=== PATIENT | female | born 1970 | race Caucasian/White ===

== ENCOUNTER → 2018-10-11 14:12 | Outpatient (CLI) | payer BC | END | disposition home or self-care (01) | LOC: D.HCCARDIO 14:12 | PROVIDERS: ATTEND Internal Medicine Cardiovascular Disease | DX: R07.9 Chest pain, unspecified (principal) ==

== ENCOUNTER 2018-10-19 12:02 | Outpatient (CLI) | payer BC ==
[~2018-10-19] VITALS: Ht 160 cm; Wt 56.8 kg
--- NOTE | ~2018-10-19 | HEMODYNAMI ---
PATIENT:FRANK REINOSO MEDICAL RECORD: [id number] : 70 LOCATION:[facility] ADMISSION DATE: 10/19/18 Generatedon:10/19/201814:50 Patient name: FRANK REINOSO Patient #: [id number] SSN: : 1970 Date of study: 10/19/2018 Page: Of Hemodynamic Procedure Report Patient Data Patient Demographics Procedure consent was obtained First Name: FRANK Gender: Female Last Name: ARLETH : 1970 Middle Initial: EDILSON Age: 47 year(s) Patient #: [id number] Race: Unknown Additional ID: [id number] Contact details Address: [address] [place] [address] State: [place] [facility] [place]: [address] Past Medical History Allergies Allergen Reaction Date Comments Reported Other allergy 10/19/2018 sulfa Admission Admission Data Admission Date: 10/19/2018 Admission Time: 12:02 Admit Source: Other Lab Results Lab Result Date: 10/19/2018 Lab Result Time: 12:30 Biochemistry Name Units Result Min Max BUN mg/dl 11 --(-*--)-- 7 18 Creatinine mg/dl 0.6 --(*---)-- 0.6 1.3 CBC Name Units Result Min Max Hematocrit % 38.2 *-(----)-- 42 54 Hemoglobin g/dl 12.9 -*(----)-- 13.5 17.5 Procedure Procedure Types Cath Procedure Diagnostic Procedure LHC C w/Coronaries Procedure Description Procedure Date Procedure Date: 10/19/2018 Procedure Start Time: 14:33 Procedure End Time: 14:47 Procedure Staff Name Function Monster Hutchinson MD Performing Physician Russel Matamoros RT Monitor Daren Chamberlain RN Nurse Annabel Pinto RT Monitor Alvarez Chase RT Scrub Procedure Data Cath Procedure Fluoroscopy Diagnostic fluoroscopy Total fluoroscopy Time: 2.3 time: 2.3 min min Diagnostic fluoroscopy Total fluoroscopy dose: 273 dose: 273 mGy mGy Contrast Material Contrast Material Type Amount (ml) Isovue 300 64 Entry Location Entry Primary Successful Side Size Upsize Upsize Entry Closure Chicas ccessful Closure Location (Fr) 1 (Fr) 2 (Fr) Remarks Device Remarks Radial Right 6 Fr Mechanical artery Short Compression Estimated blood loss: 5 ml Diagnostic catheters Device Type Used For End Catheter Placement DIAGNOSTIC Black Diamond 110cm 5 Procedure Fr catheter ([id number]) Procedure Complications No complications Procedure Medications Medication Administration Route Dosage 0.9% NaCl I.V. 100 ml/hr Oxygen etCO2 Nasal cannula 2 l/min Heparin Flush Bag added to field 2 bags (1000units/500ml NS) Lidocaine 2% added to field 20 Radial Cocktail added to field 1 syringe (Verapomil 2mg/Nitro 400mcg/Heparin 1500units) Versed I.V. 2 mg Fentanyl I.V. 100 mcg Versed I.V. 2 mg Radial Cocktail I.A. 1 syringe (Verapomil 2mg/Nitro 400mcg/Heparin 1500units) Hemodynamics Rest HGB: 12.9 (g/dl) Heart Rate: 71 (bpm) Pressure Samples Time Site Value (mmHg) Purpose Heart Use Rate(bpm) 14:40 LV 107/8,28 Snapshot 122 14:40 LV 98/10,25 Snapshot 127 Gradients Valve Time Site Site Mean SEP/DFP Peak To Heart Use 1 2 (mmHg) (sec/min) Peak Rate (mmHg) (bpm) Aortic 14:40 LV AO 112 Snapshots Pre Cath Intra NCS Post Cath Vital Signs Time Heart Resp SPO2 etCO2 NIBP (mmHg) Rhythm Pain Sedation Rate (ipm) (%) (mmHg) Status Level (bpm) 14:21:11 90 13 100 0 136/81(113) NSR 0 (11) 10(A) , No pain 14:25:27 78 23 98 38.6 115/67(101) NSR 0 (11) 10(A) , No pain 14:29:37 73 11 97 20 125/65(92) NSR 0 (11) 10(A) , No pain 14:33:47 83 21 97 41.5 133/74(94) NSR 0 (11) 10(A) , No pain 14:37:57 88 12 96 40.7 98/59(81) NSR 0 (11) 10(A) , No pain 14:41:59 99 27 96 39.3 109/68(92) NSR 0 (11) 10(A) , No pain 14:46:04 88 17 97 38.5 114/73(84) NSR 0 (11) 10(A) , No pain Medications Time Medication Route Dose Verified Delivered Reason Notes Effectiveness by by 14:24:28 0.9% NaCl I.V. 100 Daren Daren Per ml/hr Cintia Chamberlain physician RN RN 14:24:39 Oxygen etCO2 2 l/min Daren Daren for low 02 Nasal Lorigan Lorpollo sats cannula RN RN 14:25:48 Heparin Flush added 2 bags Daren Daren used for Bag to Lorpollo Chamberlain procedure (1000units/500ml field RN RN NS) 14:25:58 Lidocaine 2% added 20ml Daren Daren for local to vial Lorigan Lorigan anesthetic RN RN 14:26:11 Radial Cocktail added 1 Daren Daren used for (Verapomil to syringe Lorigan Cintia procedure 2mg/Nitro field BUSH RN 400mcg/Hepari 14:31:32 Versed I.V. 2 mg Daren Daren for sedation Cintia Chamberlain RN RN 14:32:00 Fentanyl I.V. 100 mcg Daren Daren for sedation Cintia Chamberlain RN RN 14:34:11 Versed I.V. 2 mg Daren Daren for sedation Cintia Chamberlain RN RN 14:34:20 Radial Cocktail I.A. 1 Daren Monster for (Verapomil syringe Cintia Hutchinson MD vasodilation 2mg/Nitro RN 400mcg/Hepari Procedure Log Time Note 14:01:01 Informed consent obtained and on chart 14:07:08 Admit Source: Other 14:07:23 Diagnostic Cath status Elective 14:07:24 Daren Chamberlain RN sent for patient. Start room use. 14:07:57 Time tracking: Regular hours (M-F 7:00 - 5:00) 14:08:01 Plan of Care:Hemodynamics will remain stable., Cardiac rhythm will remain stable., Comfort level will be maintained., Respiratory function will remain adequate., Patient/ family verbilizes understanding of procedure., Procedure tolerated without complication., Recovers from procedure without complications.. 14:08:07 H&P Date Dictated: 10/19/2018 Within 30 days and on chart.. 14:11:00 Lab Result : Hemoglobin 12.9 g/dl 14:11:00 Lab Result : Hematocrit 38.2 % 14:11:00 Lab Result : BUN 11 mg/dl 14:11:00 Lab Result : Creatinine 0.6 mg/dl 14:11:08 Lab results completed and on chart. 14:12:09 Patient received from Pre/Post Procedure Room to CCL 1 Alert and oriented. Tansferred to table in Supine position. 14:12:11 Correct patient and procedure confirmed by team. 14:12:11 Warm blankets applied, and shirley hugger turned on for patient comfort. 14:12:14 ECG and BP/O2 sat monitors applied to patient. 14:12:15 Pre-procedure instructions explained to patient. 14:12:16 Pre-op teaching completed and patient verbalized understanding. 14:12:17 Family in waiting room. 14:12:18 Patient NPO since Midnight. 14:12:29 Patient allergic to Other allergysulfa 14:16:11 Vital chart was started 14:16:13 Full Disclosure recording started 14:24:28 0.9% NaCl 100 ml/hr I.V. was administered by Daren Chamberlain RN; Per physician; 14:24:39 Oxygen 2 l/min etCO2 Nasal cannula was administered by Daren Chamberlain RN; for low 02 sats; 14:24:41 Is the patient allergic to Iodine/contrast media? No. 14:24:43 Is patient on blood thinner?No 14:24:45 Patient diabetic? No. 14:24:51 Previous problem with sedation/anesthesia? No ? 14:24:53 Sleep apnea? No 14:24:53 Snore? Yes 14:24:54 Deviated septum? No 14:24:55 Opens mouth fully? Yes 14:24:56 Sticks out tongue? Yes 14:24:59 Airway obstruction? No ? 14:25:20 Dentures? No ? 14:25:27 Pre procedure: right dorsailis pedis pulse 2+ Normal; easily identifiable; not easily obliterated 14:25:29 Patient pain scale 0/10 ?. 14:25:30 Modified Kalen's test Ulnar > 7 seconds. 14:25:36 IV patent on arrival in left wrist with 0.9% NaCl at [facility]. 14:25:41 Right Radial & Right Groin area was prepped with chlora-prep and draped in sterile fashion 14:25:42 Sharps counted by scrub and verified by R.N. 14:25:42 Alarms reviewed by R. N. 14:25:45 ACIST Syringe (18510) opened to sterile field. 14:25:45 Use device set Radial Dx or PCI 14:25:46 Bag Decanter (2002S) opened to sterile field. 14:25:46 Medline Cath Pack ([id number]) opened to sterile field. 14:25:47 ACIST Manifold (54023) opened to sterile field. 14:25:47 ACIST Hand Control (29059) opened to sterile field. 14:25:48 MBrace Wrist Support ([id number]) opened to sterile field. 14:25:48 Tegaderm 4 x 4 (1626W) opened to sterile field. 14:25:48 Heparin Flush Bag (1000units/500ml NS) 2 bags added to field was administered by Daren Chamberlain RN; used for procedure; 14:25:49 SHEATH 6FR Slender (22-1060) opened to sterile field. 14:25:50 DIAGNOSTIC WIRE .035 260cm J wire (966933) opened to sterile field. 14:25:51 NEEDLE Cook 21G 4cm Radial (O48460) opened to sterile field. 14:25:55 Baseline sample Acquired. 14:25:58 Lidocaine 2% 20ml vial added to field was administered by Daren Chamberlain RN; for local anesthetic; 14:25:59 Rhythm: sinus rhythm 14:26:11 HCG/Urine : completed and on chart, negative 14:26:11 Radial Cocktail (Verapomil 2mg/Nitro 400mcg/Heparin 1500units) 1 syringe added to field was administered by Daren Chamberlain RN; used for procedure; 14::13 --------ALL STOP TIME OUT------ 14:26:13 Physician arrived 14:26:16 Right Radial & Right Groin site verified by team. 14:26:20 Maximum allowable Isovue 300 dose 300ml. Physician notified. (300ml for normal creatinines. For patients with creatinine of 1.7 or higher multiply weight(kg) x 5 divided by creatinine.) 14:26:23 Fire Safety Assessment: A--An alcohol-based skin anteseptic being used preoperatively., C--Open oxygen or nitrous oxide is being used., D--An ESU, laser, or fiber-optic light is being used. 14:26:25 Physical assessment completed. ASA score P 2 - A patient with mild systemic disease as per Monster Hutchinson MD. 14::31 Sedation plan: IV Moderate Sedation Medication:Versed, Fentanyl 14:30:16 Zero performed for pressure channel P1 14:30:55 Zero performed for pressure channel P1 14::32 Versed 2 mg I.V. was administered by Daren Chamberlain RN; for sedation; 14:32:00 Fentanyl 100 mcg I.V. was administered by Daren Chamberlain RN; for sedation; 14:32:28 Procedure started. 14:33:37 Local anesthetic to right radial artery with Lidocaine 2% by Monster Hutchinson MD.INITIAL ACCESS ONLY 14:33:52 A 6 Fr Short sheath was inserted into the Right Radial artery 14:34:11 Versed 2 mg I.V. was administered by Daren Chamberlain RN; for sedation; 14:34:20 Radial Cocktail (Verapomil 2mg/Nitro 400mcg/Heparin 1500units) 1 syringe I.A. was administered by Monster Hutchinson MD; for vasodilation; 14:35:00 A DIAGNOSTIC Black Diamond 110cm 5 Fr catheter ([id number]) was advanced over the wire and used for Procedure. 14:35:37 LV gram done using DELGADO 14:35:42 Injector settings: Ml/sec: 7, Volume: 15, 14:36:38 Zero performed for pressure channel P1 14:38:01 Zero performed for pressure channel P1 14:38:21 Zero performed for pressure channel P1 14:38:50 Zero performed for pressure channel P1 14:39:00 Zero performed for pressure channel P1 14:39:07 Zero performed for pressure channel P1 14:40:24 LV hemodynamics recorded. 14:40:45 EF : 60 % 14:41:13 LCA angiography performed. 14:42:49 RCA angiography performed. 14:43:18 Catheter removed. 14:44:03 TR BAND Standard ([id number]) opened to sterile field. 14:44:12 Procedure ended.(Physican Out) 14:44:36 Sheath removed intact; hemostasis achieved with Mechanical Compression to the Right Radial artery. 14:44:57 Fluoroscopy time 02.30 minutes. 14:45:01 Fluoroscopy dose: 273 mGy 14:45:01 Flurop Dose total: 273 14:45:04 Contrast amount:Isovue 300 64ml. 14:45:06 Sharps counted by scrub and verified by R.N. 14:45:08 TR band inflated with 14cc of air. 14:45:11 Post-procedure physical assessment completed. ASA score P 2 - A patient with mild systemic disease as per Monster Hutchinson MD. 14:45:14 Post procedure rhythm: sinus rhythm 14:45:18 Estimated blood loss: 5 ml 14:45:20 Patient needs reinforcement of post procedure teaching. 14:45:20 Post procedure instruction explained to patient.Patient verbalizes understanding. 14:46:48 Procedure and supply charges have been captured, reviewed, submitted and are correct. 14:46:51 Procedure Complication : No complications 14:46:55 Vital chart was stopped 14:46:56 See physician's report for complete and final results. 14:46:59 Report given to Pre/Post Procedure Room. 14:47:06 Patient transfered to Pre/Post Procedure Room with Bed. 14:47:08 Full Disclosure recording stopped 14:47:08 Procedure ended. 14:47:13 End room use (Document Last) Device Usage Item Name Manufacture Quantity Catalog Hospital Part Current Minimal Lot# / Number Charge Number Stock Stock Serial# Code ACIST Acist 1 [id number] 038436 688197 20 Syringe Medical (72927) Systems Inc Medline Medline 1 [id number] 037581 48898 382442 5 Cath Pack ([id number]) Bag Microtek 1 644099 93412 776584 5 Decanter Medical Inc. () ACIST Hand Acist 1 89983 138024 604270 174318 5 Control Medical (34388) Systems Inc ACIST Acist 1 44211 938284 381175 959249 5 Manifold Medical (88823) Systems Inc Tegaderm 4 3M 1 1626W 927437 104968 290910 5 x 4 (1626W) MBrace Advanced 1 140-0250-00 413927 49540 182688 5 Wrist Vascular Support Dynamics ([id number]) SHEATH 6FR Terumo 1 [id number] 321774 631229 157156 5 Slender (48-6380) DIAGNOSTIC [place] 1 418383 781329 473313 614564 30 WIRE .035 260cm J wire (934441) NEEDLE [facility] 1 [id number] 745187 516341 136774 5 21G 4cm Radial (H46593) DIAGNOSTIC Terumo 1 40-8463 264419 142947 528378 5 Black Diamond 110cm 5 Fr catheter (473679) TR BAND Terumo 1 [id number] 443931 743946 311026 40 Standard ([id number]) Signature Audit [place] Stage Time Signature Unsigned Intra-Procedure 10/19/2018 Annabel Pinto 2:48:03 PM RT(R) RT(R) 10/19/2018 2:50:38 PM Intra-Procedure 10/19/2018 Annabel Pinto 2:50:52 PM RT(R) Signatures Monitor : Russel Matamoros RT Signature : Date : Time : Monitor : Annabel Pinto Signature : RT Date : Time : [place] [id number] [place] [address]
[2018-10-19] MEDS ORDERED: BUPROPION XL150 MG PO (12:20)
[2018-10-19] MEDS ORDERED: ADDERALL 10 MG10 MG PO (12:20)
[2018-10-19 12:27] VITALS: BP 123/67; Ht 160 cm; Wt 56.8 kg
[2018-10-19 12:40] LABS: BASOPHILS 0.2 % (0-2); EOSINOPHILS 1.4 % (0-7); HEMATOCRIT 38.2 % (36.0-48.0); HEMOGLOBIN 12.9 g/dL (12-16); LYMPHOCYTES 22.4 % (15-50); MCH 31.1 pg (26.0-34.0); MCHC 33.8 g/dL (31.0-37.0); MEAN PLATELET VOLUME 9.4 fL (7.4-10.4); MONOCYTES 7.8 % (2-11); NEUTROPHILS 68.2 % (40-80); PLATELET COUNT 227 10x3/uL (130-400); RBC 4.15 10x6/uL (4.00-5.40); RDW 12.9 % (11.5-14.5); WBC 5.7 10x3/uL (4.8-10.8)
[2018-10-19 12:57] LABS: CALC OSMOLALITY 276 mosm/kg (275-300); CALCIUM 8.4 mg/dL (8.5-10.1); CARBON DIOXIDE 24.8 mmol/L (21.0-32.0); CHLORIDE - SERUM 104 mmol/L (98-107); CREATININE - SERUM 0.6 mg/dL (0.6-1.3); GLUCOSE 92 mg/dL (74-106); POTASSIUM - SERUM 3.4 mmol/L (3.5-5.1); SODIUM 139 mmol/L (136-145); UREA NITROGEN 11 mg/dL (7-18); eGFR NON AFRICAN AMERICAN > 90 mL/min (90-120)
[2018-10-19 13:04] LABS: HCG SERUM NEGATIVE (NEGATIVE)
--- NOTE | 2018-10-19 15:10 | NUR ---
2L NC, NO RESP DISTRESS. RIGHT WRIST TR BAND CDI, NO BLEEDING OR HEMATOMA NOTED. NO C/O PAIN OR NAUSEA. VSS. FAMILY AT BEDSIDE, CALL LIGHT WITHIN REACH.
--- NOTE | 2018-10-19 15:40 | NUR ---
SIPPING ON DRINK AND EATING SANDWICH WITH NO C/O NAUSEA. RIGHT WRIST TR BAND CDI, NO BLEEDING OR HEMATOMA NOTED. DENIES ANY NEEDS. VSS. WILL CONTINUE TO MONITOR.
--- NOTE | 2018-10-19 16:05 | NUR ---
3CC OF AIR REMOVED FROM TR BAND WITH NO BLEEDING NOTED. VSS. NO NEEDS VOICED. WILL CONTINUE TO MONITOR.
--- NOTE | 2018-10-19 16:20 | NUR ---
3CC OF AIR REMOVED FROM TR BAND WITH NO BLEEDING NOTED. VSS.
--- NOTE | 2018-10-19 16:35 | NUR ---
3CC OF AIR REMOVED FROM TR BAND WITH NO BLEEDING NOTED. LEFT PIV D/C'D WITH CATHETER INTACT, BAND AID TO SITE. UP TO BEDSIDE TO GET DRESSED. AMBULATED TO RESTROOM.
--- NOTE | 2018-10-19 16:48 | NUR ---
REMAINING AIR REMOVED FROM TR BAND WITH NO BLEEDING NOTED. DRESSING TO SITE. DISCHARGE INSTRUCTIONS GIVEN, VERBALIZED UNDERSTANDING.
--- NOTE | 2018-10-19 17:00 | NUR ---
TAKEN OUT VIA WHEELCHAIR BY CATH CMM PROGRAMMER. LEFT FACILITY WITH FAMILY AND ALL PERSONAL BELONGINGS.
== END 2018-10-19 17:00 | disposition home or self-care (01) ==
LOC: D.CATH 12:02
PROVIDERS: ATTEND Internal Medicine Cardiovascular Disease
DX: I20.9 Angina pectoris, unspecified (principal); Z01.812 Encounter for preprocedural laboratory examination